=== PATIENT | female | born 1950 | race Two or more races ===

== ENCOUNTER 2023-10-06 01:42 | Emergency (ER) | payer OTHER ==
[~2023-10-06] VITALS: Ht 152.4 cm; Wt 72.6 kg
[2023-10-06] MEDS ORDERED: ZOCOR20 MG (01:46)
[2023-10-06] MEDS ORDERED: SIMVASTATIN5 MG (01:46)
== END 2023-10-06 06:10 | disposition home or self-care (01) ==
LOC: ER 01:42
DX: S00.33XA Contusion of nose, initial encounter (principal); X58.XXXA Exposure to other specified factors, initial encounter; Y93.89 Activity, other specified; Y92.59 Other trade areas as the place of occurrence of the external cause; Y99.8 Other external cause status; Z88.0 Allergy status to penicillin